=== PATIENT | female | born 1995 | race American Indian/Alaskan Native ===

== ENCOUNTER 2022-04-16 22:41 | Emergency (ER) | payer OTHER ==
[2022-04-17] MEDS ORDERED: IBUPROFEN 800 MG TAB PO ONE ×2 (03:14→06:29)
[2022-04-17] MEDS ORDERED: LIDOCAINE-MPF (1%) 10 MG/1 ML VIAL 5 ML INFILTRATI ONE (06:12)
[2022-04-17] MEDS ORDERED: traMADol 50 MG TAB PO ONE (06:23)
[2022-04-17] MEDS ORDERED: cephALEXin 500 MG CAP PO ONE (06:23)
--- NOTE | 2022-04-17 06:28 | Emergency Department Report ---
ED General Adult HPI - General Chief complaint: Skin/Abscess/Foreign Body Stated complaint: CYST Source: patient Mode of arrival: Ambulatory Limitations: No Limitations - History of Present Illness Initial comments: Is a 26-year-old female who presents for abscess to buttocks patient has history of same. This episode is lasted for the past 4 days. Pain with sitting. Patient denies fevers or chills no nausea no vomiting no rigors. Patient states abscess started to drain in triage tonight pain is improved. Patient does not have diabetes. Patient currently taking Bactrim p.o. as prescribed by urgent care Severity scale (0 -10): 8 - Related Data Previous Rx's Medication Instructions Recorded Last Taken Type Ibuprofen [Motrin 800 MG tab] 800 mg PO Q8HR PRN #30 tablet 04/17/22 Unknown Rx cephALEXin [Keflex] 500 mg PO Q8HR 7 Days #21 cap 04/17/22 Unknown Rx Allergies Allergy/AdvReac Type Severity Reaction Status Date / Time No Known Allergies Allergy Unverified 06/28/16 12:00 ED Review of Systems ROS: Stated complaint: CYST Other details as noted in HPI Constitutional: denies: chills, fever Eyes: denies: eye pain, eye discharge, vision change ENT: denies: ear pain, throat pain Respiratory: denies: cough, shortness of breath, wheezing Cardiovascular: denies: chest pain, palpitations Endocrine: no symptoms reported Gastrointestinal: denies: abdominal pain, nausea, vomiting, diarrhea Genitourinary: denies: urgency, dysuria, discharge Musculoskeletal: denies: back pain, joint swelling, arthralgia Skin: other (Abscess buttocks) Neurological: denies: headache, weakness, paresthesias Psychiatric: denies: anxiety, depression Hematological/Lymphatic: denies: easy bleeding, easy bruising ED Past Medical Hx - Past Medical History Hx Asthma: Yes Additional medical history: Recurrent abscesses - Social History Smoking Status: Current Every Day Smoker Substance Use Type: None - Medications Home Medications: Home Medications Medication Instructions Recorded Confirmed Last Taken Type Ibuprofen [Motrin 800 MG tab] 800 mg PO Q8HR PRN #30 tablet 04/17/22 Unknown Rx cephALEXin [Keflex] 500 mg PO Q8HR 7 Days #21 cap 04/17/22 Unknown Rx ED Physical Exam - General Limitations: No Limitations General appearance: alert, in no apparent distress - Head Head exam: Present: normocephalic, normal inspection - Eye Eye exam: Present: EOMI Pupils: Present: normal accommodation - ENT ENT exam: Present: normal orophraynx, mucous membranes moist - Neck Neck exam: Present: normal inspection, full ROM. Absent: tenderness, lymphadenopathy - Respiratory Respiratory exam: Present: normal lung sounds bilaterally. Absent: respiratory distress, wheezes - Cardiovascular Cardiovascular Exam: Present: regular rate, normal rhythm, normal heart sounds. Absent: systolic murmur, diastolic murmur, rubs, gallop - GI/Abdominal GI/Abdominal exam: Present: soft, normal bowel sounds. Absent: distended, tenderness - Rectal Rectal exam: Present: deferred - Extremities Exam Extremities exam: Present: normal inspection, full ROM, normal capillary refill - Back Exam Back exam: Present: normal inspection, full ROM. Absent: CVA tenderness (R), CVA tenderness (L) - Neurological Exam Neurological exam: Present: alert, oriented X3, CN II-XII intact - Expanded Neurological Exam Expanded Patient oriented to: Present: person, place, time Speech: Present: fluid speech Motor strength exam: RLE: 5, LLE: 5 Best Eye Response ([place]): (4) open spontaneously Best Motor Response ([place]): (6) obeys commands Best Verbal Response ([place]): (5) oriented [place] Total: 15 - Psychiatric Psychiatric exam: Present: normal affect, normal mood - Skin Skin exam: Present: warm, dry, intact, erythema (Right buttocks abscess 2 x 3 cm fluctuant mild erythema). Absent: rash ED Course Vital Signs 04/16/22 22:45 Temperature 98.4 F Pulse Rate 109 H Respiratory 18 Rate Blood Pressure 124/53 O2 Sat by Pulse 95 Oximetry - I & D Right Buttocks Type of Procedure: Simple Site: Right buttocks cleft Blade Size: 11 I & D Procedure: betadine prep, sterile drapes applied, sterile dressing applied, gauze wick placed Progress: Site cleaned with Betadine solution anesthesia with 1% lidocaine x5 cc anesthesia was achieved, incision with 11 blade scalpel x1 loculations broken up with 6 inch blunt forceps moderate purulent drainage wound irrigated with 200 cc sterile saline. Sterile dressing applied all bleeders controlled patient tolerated procedure with minimal distress patient given wound care instructions. Including symptoms of infection antibiotic therapy. Follow-up primary care doctor. Patient verbalized agreement and understanding of same. ED Medical Decision Making - Radiology Data Radiology results: report reviewed, image reviewed Patient for I&D of right buttocks abscess see procedure note. Sterile dressing remains intact all bleeding is controlled patient tolerated procedure with minimal distress patient DC'd home in stable condition with prescriptions. Patient alert oriented x3 with no acute distress at this time Critical care attestation.: If time is entered above; I have spent that time in minutes in the direct care of this critically ill patient, excluding procedure time. ED Disposition Clinical Impression: Abscess of buttock, right Disposition: 01 HOME / SELF CARE / HOMELESS Is pt being admited?: No Does the pt Need Aspirin: No Condition: Stable Instructions: Incision and Drainage Additional Instructions: Take medications as prescribed, hot sitz bath as discussed and agreed. Follow- up with your doctor in 2 to 3 days. Return to emergency should symptoms worsen. Prescriptions: cephALEXin [Keflex] 500 mg PO Q8HR 7 Days #21 cap Ibuprofen [Motrin 800 MG tab] 800 mg PO Q8HR PRN #30 tablet PRN Reason: Pain , Severe (7-10) Referrals: [facility] [Provider Group] - 3-5 Days Forms: Work/School Release Form(ED) Time of Disposition: 06:40
[2022-04-17 06:54] VITALS: BP 118/62
== END 2022-04-17 06:59 | disposition home or self-care (01) ==
LOC: ED 22:41
DX: L02.31 Cutaneous abscess of buttock (principal); J45.909 Unspecified asthma, uncomplicated; F17.200 Nicotine dependence, unspecified, uncomplicated
CPT/HCPCS: 10060; 99282; J3490; 99283